=== PATIENT | female | born 1990 | race American Indian/Alaskan Native ===

== ENCOUNTER 2016-06-21 19:51 | Emergency (ER) | payer MEDICAID ==
--- NOTE | 2016-06-21 20:35 | OBDCSUM ---
Datetime: 06/21/2016 20:27 Discharged to, Provider: Home Follow up at, Provider: [facility] Disch Instr Activity: Normal activity; Bedrest Disch Instr Diet: Regular Discharge Instructions, Provider: Routine instructions given Discharge Diagnosis, Provider: False Labor - Undelivered Discharge Time: 06/21/2016 20:27 Follow up in weeks, Provider: TOMORROW, 06/22/16 Disch Referrals: None
--- NOTE | 2016-06-21 20:35 | OBHP ---
Datetime: 06/21/2016 20:26 IP Adm Impression: , intrauterine ; No Active Labor; Intact Membranes IP Chief Complaint Other: P1 at 21 weeks Gestation complains of lower abdominal cramping pain since this morning. Denies vaginal bleeding, or LOF. Denies urinary symptoms . Has a dry cough since this m orning. No fever or chills. PMH: Asthma IP Admit Plan: Discharge home Admit Comment, IP Provider: Not in Labor. Discharge home on bed rest. Increse oral fluids. Pelvic Type - PN: Adequate Extremities - PN: Normal Abdomen - PN: Normal Back - PN: Normal Breast - PN: Not Done Lungs - PN: Normal Heart - PN: Normal Thyroid - PN: Not Done Neurologic - PN: Not Done HEENT - PN: Not Done General - PN: Normal FHR - Baseline A Provider: 150 Membranes, Provider: Intact Contraction Comments Provider: 0 Gestation - Est Wks by US: 21.0 EGA AdmitDate IP: 21.1 Vital Signs Provider: Reviewed; Within Normal Limits IP Chief Complaint: Maternal discomfort NICHD Variability Prov Fetus A: Moderate 6-25bpm NICHD Decel Fetus A IP Provider: None Dilatation, Provider: 0 Effacement, Provider: 0 Genitourinary Exam: Normal DTRs - PN: Normal
== END 2016-06-21 20:27 | disposition home or self-care (01) ==
LOC: C.EROB 19:51
DX: O47.02 False labor before 37 completed weeks of gestation, second trimester (principal); Z3A.21 21 weeks gestation of pregnancy

== ENCOUNTER 2017-07-18 02:13 | Emergency (ER) | payer MEDICAID, OTHER ==
[2017-07-18 02:19] VITALS: BP 135/84; PULSE 92; RESP 22; TEMP 98.2; O2SAT 100
--- NOTE | 2017-07-18 02:58 | C.PDOC ---
History Of Present Illness 27 year old female presents to the ED complaining of abdominal cramping and vaginal bleeding this morning. Patient reports it is similar in amount to period pain. Patient has a past medical history of one prior STI, chlamydia, . Denies any other pain. Chief Complaint (Nursing): Female Genitourinary History Per: Patient History/Exam Limitations: no limitations Onset/Duration Of Symptoms: Hrs (12) Current Symptoms Are (Timing): Still Present Quality Of Discomfort: Cramping : 3 Para: 3 Past Medical History Reviewed: Historical Data, Nursing Documentation, Vital Signs Vital Signs: Last Vital Signs Temp 98.2 F 07/18/17 02:16 Pulse 92 H 07/18/17 02:16 Resp 22 07/18/17 02:16 BP 135/84 07/18/17 02:16 Pulse Ox 100 07/18/17 04:57 - Medical History PMH: Asthma Surgical History: No Surg Hx Family History: States: Unknown Family Hx - Social History Hx Tobacco Use: No Hx Alcohol Use: No Hx Substance Use: No - Immunization History Hx Tetanus Toxoid Vaccination: No Hx Influenza Vaccination: Yes Hx Pneumococcal Vaccination: No Review Of Systems Except As Marked, All Systems Reviewed And Found Negative. Gastrointestinal: Positive for: Abdominal Pain (cramping ) Genitourinary: Positive for: Vaginal Bleeding Physical Exam - Physical Exam Appears: Non-toxic, No Acute Distress, Other (significant morbidly obese) Eye(s): bilateral: Normal Inspection Ear(s): Bilateral: Normal Nose: Normal Throat: Normal Neck: Normal, Supple Cardiovascular: Rhythm Regular Respiratory: Normal Breath Sounds Gastrointestinal/Abdominal: Bowel Sounds, Soft, Guarding, No Rebound, Other ( perturbed abdomen ) Pelvic: Normal External Exam, Normal Bimanual Exam, No Vaginal Bleeding, No Vaginal Discharge, No Cervical Motion Tenderness, No Cervix Open Extremity: Normal ROM Pulses: Left Dorsalis Pedis: Normal (2+), Right Dorsalis Pedis: Normal (2+) ED Course And Treatment - Laboratory Results Result Diagrams: 07/18/17 03:00 07/18/17 03:00 O2 Sat by Pulse Oximetry: 100 (RA) Pulse Ox Interpretation: Normal Medical Decision Making Medical Decision Making: Time: 0300 Impression: Threatened AB vs Ectopic. Plan: -- Type and Screen -- Beta HCG- Quantitative -- CMP -- CBC with differentials -- HCQ Quantitative -- Urinalysis Time: 433 -- Re-Eval: Review of labs reveals that the patient is but her HCG is 268.7. Patient's blood type is A+. Ultrasound would be unlikely to yield any useful information at this current time. Patient is currently in no pain and advised to return to us or [facility] physician next week for definitive ultrasound. Patient is instructed to return immediately to ER if she feels any pain. Disposition - Disposition Referrals: at [facility] [Outside] Ashok Ashraf MD [Staff Provider] - Disposition: HOME/ ROUTINE Disposition Time: 06:16 Condition: GOOD Additional Instructions: return immediately for pain otherwise f/u with OB for definitive ultrasound in the next week Instructions: Threatened Miscarriage, Bleeding With (DC) Forms: [employer] (Chinese) - Clinical Impression Clinical Impression: - Scribe Statement The provider has reviewed the documentation as recorded by the Evelineibe Vicky Bird Provider Attestation: All medical record entries made by the Scribe were at my direction and personally dictated by me. I have reviewed the chart and agree that the record accurately reflects my personal performance of the history, physical exam, medical decision making, and the department course for this patient. I have also personally directed, reviewed, and agree with the discharge instructions and disposition.
[2017-07-18 03:03] LABS: BASO # 0.1 K/uL (0.0-0.2); BASO % 0.9 % (0.0-2.0); EOS # 0.5 K/uL (0.0-0.7); EOS % 4.4 % (0.0-4.0); HEMOGLOBIN 12.2 g/dL (11.0-16.0); LYMPH % 35.5 % (20.0-40.0); MEAN CELL VOLUME 84.1 fL (81.0-99.0); MEAN CORPUSCULAR HEMOGLOBIN 28.4 pg (27.0-31.0); MEAN CORPUSCULAR HGB CONC 33.8 g/dL (33.0-37.0); MEAN PLATELET VOLUME 7.7 fL (7.2-11.7); MONO % 9.4 % (0.0-10.0); NEUT # 5.5 K/uL (1.8-7.0); NEUT % 49.8 % (50.0-75.0); RBC 4.31 Mil/uL (3.80-5.20); RED CELL DISTRIBUTION WIDTH 14.1 % (11.5-14.5); WHITE BLOOD COUNT 11.1 K/uL (4.8-10.8)
[2017-07-18 03:05] LABS: HCG,QUALITATIVE URINE POSITIVE (NEGATIVE)
[2017-07-18 03:10] LABS: SQUAMOUS EPITHIAL 4 /hpf (0-5); URINE BACTERIA RARE (<OCC); URINE BILIRUBIN NEGATIVE (NEGATIVE); URINE BLOOD 2+ (NEGATIVE); URINE CLARITY Clear (Clear); URINE COLOR Yellow (YELLOW); URINE GLUCOSE (UA) NORMAL (Normal); URINE LEUKOCYTE ESTERASE NEG Leu/uL (Negative); URINE PROTEIN NEGATIVE (NEGATIVE)
[2017-07-18 03:18] LABS: ALB/GLOB RATIO 0.9 (1.0-2.1); ALBUMIN 3.8 g/dL (3.5-5.0); ALT/SGPT 25 U/L (9-52); AST/SGOT 20 U/L (14-36); BLOOD UREA NITROGEN 5 mg/dL (7-17); CALCIUM 8.9 mg/dl (8.6-10.4); GFR AFRICAN-AMERICAN > 60; GFR NON-AFRICAN AMERICAN > 60
== END 2017-07-18 05:11 | disposition home or self-care (01) ==
LOC: C.ER 02:13
DX: O26.891 Other specified pregnancy related conditions, first trimester (principal); Z3A.00 Weeks of gestation of pregnancy not specified

== ENCOUNTER 2018-05-19 12:52 | Outpatient (CLI) | payer MEDICAID | END 2018-05-19 12:53 | disposition home or self-care (01) | LOC: C.DIABED 12:52 | DX: R63.4 Abnormal weight loss (principal) ==